=== PATIENT | female | born 1950 | race Caucasian/White ===

== ENCOUNTER 2016-10-17 10:46 | Inpatient (IN) | payer MEDICARE ==
[~2016-10-17] VITALS: Ht 157.5 cm; Wt 78.0 kg
[2016-10-17 11:47] LABS: BASO # 0.1 x10^3/uL (0.0-0.2); BASO % 1 % (0-3); EOS % 1 % (0-3); HEMATOCRIT 38.9 % (36.0-47.0); HEMOGLOBIN 12.9 g/dL (12.0-15.5); LYMPH # 1.4 x10^3/uL (1.0-4.8); LYMPH % 18 % (24-48); MEAN CORPUSCULAR HEMOGLOBIN 32 pg (25-35); MEAN CORPUSCULAR HGB CONC 33 g/dL (31-37); MEAN CORPUSCULAR VOLUME 97 fL (79-100); MONO % 6 % (0-9); NEUT % 75 % (31-73); PLATELET COUNT 283 x10^3/uL (140-400); RED BLOOD COUNT 4.02 x10^6/uL (3.50-5.40); RED CELL DISTRIBUTION WIDTH 14.3 % (11.5-14.5)
[2016-10-17 11:52] LABS: CALCIUM 8.9 mg/dL (8.5-10.1); CREATININE 0.9 mg/dL (0.6-1.0); GFR 62.8; POTASSIUM 4.3 mmol/L (3.5-5.1)
--- NOTE | 2016-10-17 12:11 | RAD ---
Indication: Fall and right knee pain. Time of exam 11:53 AM Severe medial compartmental degenerative change is noted. There is complete loss of the joint space as well as marginal osteophyte formation. The lateral compartment is maintained. There is severe patellofemoral degenerative change noted. Small joint effusion is seen. No fracture is detected. There is no dislocation. Impression: Severe degenerative changes. No acute bony abnormality is detected.
--- NOTE | 2016-10-17 12:29 | RAD ---
Indication: Fall with face pain. Axial imaging through the cervical spine was performed without contrast. Curvature and alignment of the cervical spine is normal. There is multilevel degenerative disc disease with variable disc space narrowing and marginal spurring, greatest C5-6 and C6-7 levels. The prevertebral tissues are normal. The odontoid is intact. No fractures are seen. Impression: Cervical spondylosis. No acute bony abnormality is detected. PQRS Compliance Statement: One or more of the following individualized dose reduction techniques were utilized for this examination: 1. Automated exposure control 2. Adjustment of the mA and/or kV according to patient size 3. Use of iterative reconstruction technique
--- NOTE | 2016-10-17 12:32 | RAD ---
Indication: Fall with left facial swelling and bruising. Axial imaging through the brain and facial bones was performed without contrast. Sagittal and coronal reformations of the facial bones were also performed. CT brain: The ventricles and sulci are within normal limits. No sulcal effacement, midline shift or hemorrhage is detected. The cisterns are patent. Impression: No acute intracranial process is detected. CT maxillofacial: The mandible appears intact. The zygomatic arches are intact. Minimal mucosal thickening of the left maxillary sinus is noted. The maxillary sinus burnette are intact. The nasal bones as well as the orbital burnette appear to be intact. No fractures are seen. Impression: No facial bone fracture is detected. PQRS Compliance Statement: One or more of the following individualized dose reduction techniques were utilized for this examination: 1. Automated exposure control 2. Adjustment of the mA and/or kV according to patient size 3. Use of iterative reconstruction technique
--- NOTE | 2016-10-17 13:33 | EKG ---
[facility] [address] [place] [address] Test Date: 2016-10-17 Test Time: 11:00:36 Pat Name: CHRISTIE MERRITT Department: Room: Gender: F [employer]: : 1950 Requested By: STAFF NON Order Number: [id number] Reading MD: Amrit Donald Measurements Intervals [place] Rate: 80 P: 43 WI: 138 QRS: 46 QRSD: 80 T: 26 QT: 372 QTc: 433 Interpretive Statements SINUS RHYTHM LEFT ATRIAL ABNORMALITY ABNORMAL ECG Electronically Signed On 10-17-2016 15:16:02 [employer]ANK ASSEM[employer]ER by Amrit Donald
--- NOTE | 2016-10-17 15:21 | PHYS DOC ---
Past Medical History Past Medical History: Anxiety, COPD, Depression, GERD, High Cholesterol, Hypertension Additional Past Medical Histor: neuoropathy Past Surgical History: Cholecystectomy, Hip Replacement Additional Past Surgical Histo: lumbar back surgery Alcohol Use: None Drug Use: None Adult General Chief Complaint Chief Complaint: TRAUMA ALERT HPI HPI Patient is a 66 year old female who presents with complaints of right knee pain and left face pain after 3 mechanical falls at home. She got up and her right knee buckled, she hit her face on furniture and had LOC. She got up and tried to ambulate a 2nd time after crawling through her apartment and fell a second time without fall. She had a similar 3rd fall without injury. She denies chest pain, dyspnea, neck pain, headache, vision changes, dizziness, numbness, tingling, weakness, abdominal pain. Review of Systems Review of Systems Constitutional: Denies fever or chills [] Eyes: Denies change in visual acuity, redness, or eye pain [] HENT: Denies nasal congestion or sore throat [] Respiratory: Denies cough or shortness of breath [] Cardiovascular: No additional information not addressed in HPI [] GI: Denies abdominal pain, nausea, vomiting, bloody stools or diarrhea [] : Denies dysuria or hematuria [] Musculoskeletal: Denies back pain [] Integument: Denies rash or skin lesions [] Neurologic: Denies headache, focal weakness or sensory changes [] Endocrine: Denies polyuria or polydipsia [] Allergies Allergies Allergies Coded Allergies Type Severity Reaction Last Updated Verified ibuprofen Allergy Intermediate 10/17/16 Yes Physical Exam Physical Exam Constitutional: Well developed, well nourished, no acute distress, non-toxic appearance. [] HENT: Normocephalic, bilateral external ears normal, oropharynx moist, no oral exudates, nose normal. Left zygoma ecchymosis and swelling without palpable bony abnormality. No hemotympanum, osman sign, raccoon eyes [] Eyes: PERRLA, EOMI. [] Neck: Normal range of motion, no tenderness, supple. [] Cardiovascular:Heart rate regular rhythm, no murmur [] Lungs & Thorax: Bilateral breath sounds clear to auscultation [] Abdomen: Bowel sounds normal, soft, no tenderness. [] Skin: Warm, dry, no erythema, no rash. [] Back: No tenderness, no CVA tenderness. [] Extremities: No obvious deformity or discoloration; Has tenderness about proximal tibia with no visual or palpable abnormality; Able to flex/ex/IR/ER hip , knee full rom, ankle df/pf, toes df/pf; No obvious knee joint laxity with stressing; SILT jade/sa/sp/dp/tib distributions; equal dp and pt pulses bilaterally [] Neurologic: Alert and oriented X 3, normal motor function, normal sensory function, no focal deficits noted. [] Psychologic: Affect normal, judgement normal, mood normal. [] Current Patient Data Vital Signs Vital Signs Date Time Temp Pulse Resp B/P Pulse Ox O2 Delivery O2 Flow Rate FiO2 10/17/16 14:00 82 20 134/63 99 Nasal Cannula 3 10/17/16 10:50 98.4 98.4 Lab Values Laboratory Tests Test 10/17/16 11:10 White Blood Count 8.0x10^3/uL (4.0-11.0) Red Blood Count 4.02x10^6/uL (3.50-5.40) Hemoglobin 12.9g/dL (12.0-15.5) Hematocrit 38.9% (36.0-47.0) Mean Corpuscular Volume 97fL (79-100) Mean Corpuscular Hemoglobin 32pg (25-35) Mean Corpuscular Hemoglobin Concent 33g/dL (31-37) Red Cell Distribution Width 14.3% (11.5-14.5) Platelet Count 283x10^3/uL (140-400) Neutrophils (%) (Auto) 75% (31-73) H Lymphocytes (%) (Auto) 18% (24-48) L Monocytes (%) (Auto) 6% (0-9) Eosinophils (%) (Auto) 1% (0-3) Basophils (%) (Auto) 1% (0-3) Neutrophils # (Auto) 6.0x10^3uL (1.8-7.7) Lymphocytes # (Auto) 1.4x10^3/uL (1.0-4.8) Monocytes # (Auto) 0.4x10^3/uL (0.0-1.1) Eosinophils # (Auto) 0.1x10^3/uL (0.0-0.7) Basophils # (Auto) 0.1x10^3/uL (0.0-0.2) Sodium Level 144mmol/L (136-145) Potassium Level 4.3mmol/L (3.5-5.1) Chloride Level 102mmol/L (98-107) Carbon Dioxide Level 35mmol/L (21-32) H Anion Gap 7 (6-14) Blood Urea Nitrogen 11mg/dL (7-20) Creatinine 0.9mg/dL (0.6-1.0) Estimated GFR (Cockcroft-Gault) 62.8 Glucose Level 88mg/dL (70-99) Calcium Level 8.9mg/dL (8.5-10.1) Laboratory Tests 10/17/16 11:10 Laboratory Tests 10/17/16 11:10 EKG EKG EKG as interpreted by normal sinus rhythm, rate 80, no ST-T changes, normal intervals, no ectopy Radiology/Procedures Radiology/Procedures Right knee x-ray as interpreted by me with severe degenerative changes, no acute osseous abnormality Head and maxillofacial CT without contrast CT brain: Impression: No acute intracranial process is detected. CT maxillofacial: Impression: No facial bone fracture is detected. DICTATED and SIGNED BY: CLAUDE ACUNA MD DATE: 10/17/161226 Cervical spine CT without contrast Impression: Cervical spondylosis. No acute bony abnormality is detected. DICTATED and SIGNED BY: CLAUDE ACUNA MD DATE: 10/17/161224 Course & Med Decision Making Course & Med Decision Making Pertinent Labs and Imaging studies reviewed. (See chart for details) Imaging is nonacute. She is unable to ambulate due to knee pain. Will admit for pain control and PT evaluation. Trauma consult placed to Dr. Ogden, who will follow inpatient. Dragon Disclaimer Dragon Disclaimer This electronic medical record was generated, in whole or in part, using a voice recognition dictation system. Departure Departure Impression: Primary Impression: Contusion of face Additional Impressions: Closed head injury Right knee pain Disposition: ADMITTED INPATIENT Condition: STABLE Referrals: UNKNOWN PCP NAME (PCP) Problem Qualifiers Primary Impression: Contusion of face Encounter type: initial encounter Qualified Code: S00.83XA - Contusion of other part of head, initial encounter Additional Impressions: Closed head injury Encounter type: initial encounter Qualified Code: S09.90XA - Unspecified injury of head, initial encounter Right knee pain Chronicity: acute Qualified Code: M25.561 - Pain in right knee Jaguar TALAVERA MD Oct 17, 2016 15:21
[2016-10-17] MEDS ORDERED: ONDANSETRON PF 4 MG/2 ML VIAL. IV PRN (15:30)
[2016-10-17] MEDS ORDERED: ACETAMINOPHEN 325 MG TABLET. PO PRN (15:30)
[2016-10-17 15:46] LABS: BILIRUBIN,URINE NEGATIVE (NEG); GLUCOSE,URINE NEGATIVE (NEG); NITRITE,URINE NEGATIVE (NEG); PH,URINE 6.5; PROTEIN,URINE NEGATIVE (NEG-TRACE); UROBILINOGEN,URINE 0.2 mg/dL (0.2 mg/dL)
--- NOTE | 2016-10-17 15:55 | PDOC1 ---
History and Physical Date of Admission Date of Admission DATE: 10/17/16 TIME: 15:47 Identification/Chief Complaint Chief Complaint R knee pain , fell Source Source: Chart review, Patient History of Present Illness History of Present Illness 66 y.o female came to er today bec she had a mechanical fall at home, She fell and hit her R knee, left head area and she does have a visible small concussion on left forehead area,. She cant bend her R knee to full flexion, which is not her baseline, She does have hx OA, follows with ortho at [facility] and gets knee injectiosn q 3 mos and her next schedule is on Nov 15. She does notw ant to have sx here sicne she follows at [facility],. I did bring up the option of her going to [facility] instead but she was agreeble to just being admitted here for pain control. She claims her insurance wont cover HH, she is agreeable to PT here. She was road tested at ER level and could barely sustain her weight, She ambulates with a walker, She has a normal BMI. Ct head, spine and neck are all normal. xray of knee, likewise, there are no FNDs. Knee xray does show severe DJD She has broken her left hip before and has ahd 2 back sxs in the past. Past Medical History Musculoskeletal: Other (OA, back pain) Past Surgical History Past Surgical History: Other (hip sx, back sx x 2) Family History Family History: No Significant Social History Smoke: No ALCOHOL: none Drugs: None Current Problem List Problem List Problems Medical Problems: (1) Closed head injury Status: Acute (2) Contusion of face Status: Acute (3) Right knee pain Status: Acute Problems: Current Medications Current Medications Current Medications Ondansetron HCl (Zofran) 4 mg PRN Q8HRS PRN IV NAUSEA/VOMITING; Start 10/17/16 at 15:30; Stop 10/18/16 at 15:29 Acetaminophen (Tylenol) 650 mg PRN Q4HRS PRN PO FEVER; Start 10/17/16 at 15:30 ; Stop 10/18/16 at 15:29 Allergies Allergies: Coded Allergies: ibuprofen (Verified Allergy, Intermediate, 10/17/16) ROS Review of System back pain, chronic, R knee pain, no nausea, CO, emesis, abd pain or any other sxs; al else is neg Physical Exam General: Alert, Oriented X3, Cooperative, No acute distress HEENT: Atraumatic Lungs: Clear to auscultation, Normal air movement Heart: S1S2, RRR, no thrills, no rubs, no gallops Cardiovascular: S1, S2 Breasts: Normal Abdomen: Normal bowel sounds, Soft, No tenderness, No hepatosplenomegaly, No masses Rectal Exam: not examined PELVIC: Nml ext genitalia, Nml ext vulva, Nml ext vagina, Nml ext cervic, Nml ext uterus Extremities: Other (limited flexion R knee, left knee has full rom, no crepitus , erythema or fluid on R knee) Vitals Vitals Vital Signs Date Time Temp Pulse Resp B/P Pulse Ox O2 Delivery O2 Flow Rate FiO2 10/17/16 14:00 82 20 134/63 99 Nasal Cannula 3 10/17/16 10:50 98.4 98.4 Labs Labs Laboratory Tests Test 10/17/16 11:10 White Blood Count 8.0x10^3/uL (4.0-11.0) Red Blood Count 4.02x10^6/uL (3.50-5.40) Hemoglobin 12.9g/dL (12.0-15.5) Hematocrit 38.9% (36.0-47.0) Mean Corpuscular Volume 97fL (79-100) Mean Corpuscular Hemoglobin 32pg (25-35) Mean Corpuscular Hemoglobin Concent 33g/dL (31-37) Red Cell Distribution Width 14.3% (11.5-14.5) Platelet Count 283x10^3/uL (140-400) Neutrophils (%) (Auto) 75% (31-73) Lymphocytes (%) (Auto) 18% (24-48) Monocytes (%) (Auto) 6% (0-9) Eosinophils (%) (Auto) 1% (0-3) Basophils (%) (Auto) 1% (0-3) Neutrophils # (Auto) 6.0x10^3uL (1.8-7.7) Lymphocytes # (Auto) 1.4x10^3/uL (1.0-4.8) Monocytes # (Auto) 0.4x10^3/uL (0.0-1.1) Eosinophils # (Auto) 0.1x10^3/uL (0.0-0.7) Basophils # (Auto) 0.1x10^3/uL (0.0-0.2) Sodium Level 144mmol/L (136-145) Potassium Level 4.3mmol/L (3.5-5.1) Chloride Level 102mmol/L (98-107) Carbon Dioxide Level 35mmol/L (21-32) Anion Gap 7 (6-14) Blood Urea Nitrogen 11mg/dL (7-20) Creatinine 0.9mg/dL (0.6-1.0) Estimated GFR (Cockcroft-Gault) 62.8 Glucose Level 88mg/dL (70-99) Calcium Level 8.9mg/dL (8.5-10.1) Laboratory Tests Test 10/17/16 11:10 White Blood Count 8.0x10^3/uL (4.0-11.0) Red Blood Count 4.02x10^6/uL (3.50-5.40) Hemoglobin 12.9g/dL (12.0-15.5) Hematocrit 38.9% (36.0-47.0) Mean Corpuscular Volume 97fL (79-100) Mean Corpuscular Hemoglobin 32pg (25-35) Mean Corpuscular Hemoglobin Concent 33g/dL (31-37) Red Cell Distribution Width 14.3% (11.5-14.5) Platelet Count 283x10^3/uL (140-400) Neutrophils (%) (Auto) 75% (31-73) Lymphocytes (%) (Auto) 18% (24-48) Monocytes (%) (Auto) 6% (0-9) Eosinophils (%) (Auto) 1% (0-3) Basophils (%) (Auto) 1% (0-3) Neutrophils # (Auto) 6.0x10^3uL (1.8-7.7) Lymphocytes # (Auto) 1.4x10^3/uL (1.0-4.8) Monocytes # (Auto) 0.4x10^3/uL (0.0-1.1) Eosinophils # (Auto) 0.1x10^3/uL (0.0-0.7) Basophils # (Auto) 0.1x10^3/uL (0.0-0.2) Sodium Level 144mmol/L (136-145) Potassium Level 4.3mmol/L (3.5-5.1) Chloride Level 102mmol/L (98-107) Carbon Dioxide Level 35mmol/L (21-32) Anion Gap 7 (6-14) Blood Urea Nitrogen 11mg/dL (7-20) Creatinine 0.9mg/dL (0.6-1.0) Estimated GFR (Cockcroft-Gault) 62.8 Glucose Level 88mg/dL (70-99) Calcium Level 8.9mg/dL (8.5-10.1) VTE Prophylaxis Ordered VTE Prophylaxis Devices: Yes VTE Pharmacological Prophylaxi: Yes Assessment/Plan Assessment/Plan 1. Severe DJD R knee with signif limited rOM tahn baseline after a mechanical fall 2. Left forehead contusion sec to fall 3. Hx back sx x 2 and hip sx PLAN: PT/OT PAin control Can check vit D levels Consult physiatry Voltaren gel to R knee scheduled HOLD off on any ortho consults as she is a know pt of ortho at [facility] and refuses any intervention here Seen at CLAUDETTE APONTE MD Oct 17, 2016 15:55
[2016-10-17] MEDS ORDERED: HYDROCODONE/APAP 10/325 TABLET. PO PRN (16:00)
[2016-10-17] MEDS ORDERED: MORPHINE SULFATE 2 MG/ML DISP.SYRIN. IV PRN (16:00)
[2016-10-17] MEDS ORDERED: HYDROCODONE/APAP 5/325MG TABLET. PO PRN (16:00)
[2016-10-17 16:12] LABS: BACTERIA,URINE 0 /HPF (0-FEW); SQUAMOUS EPITHELIAL CELL,UR OCC /LPF; WBC,URINE OCC /HPF (0-4)
--- NOTE | 2016-10-17 16:20 | ACF ---
Admission Forms Criteria PAIN MANAGEMENT [facility] Clinical Indications for Admission to Inpatient Care (Place 'X' for any and all applicable criteria): Hospital admission is needed for appropriate care of the patient because of ANY ONE of the following are present (1)(2)(3)(4)(5): [ ]I. Severe pain requiring acute inpatient management as indicated by ALL of the following (2)(5)(10): [ ]a) Continuous or frequent (eg, every 2 to 4 hours) parenteral analgesics required [A] [ ]b) Necessity (ie, alternative approaches not effective) for analgesic regimen that can only be performed or initiated in inpatient setting [X]II. Pain causing debilitation to the point of inability to function or be supported at any other level of care [ ]III. Severe side effects from pain medications as indicated by ANY ONE of the following (12)(13)(14)(15): [ ]a) Uncontrollable seizures [ ]b) Cardiac arrhythmias [ ]c) Severe volume depletion [ ]d) Vomiting that is uncontrollable at any other level of care [ ]e) Altered mental status (Rosa coma scale score less than 13) [ ]f) Obstipation with inadequate GI function to maintain nutrition [ ]g) Dehydration that is severe or persistent The original [employer] content created by [employer] has been revised. The portions of the content which have been revised are identified through the use of italic text or in bold, and [employer] [facility] has neither reviewed nor approved the modified material. All other unmodified content is copyright [employer]. Please see references footnoted in the original [employer] edition 2016 Admission Criteria Met?: Yes MARGARITO JIN Oct 17, 2016 16:20
[2016-10-17] MEDS: ONDANSETRON PF 4 MG/2 ML VIAL. IV PRN ×2 (16:51→22:59)
[2016-10-17 17:37] VITALS: BP 110/68
[2016-10-17] MEDS ORDERED: OMEP20TA63 PO (17:48)
[2016-10-17] MEDS ORDERED: ASPI81TA2 PO (17:48)
[2016-10-17] MEDS ORDERED: WHEA1POW8 PO (17:48)
[2016-10-17] MEDS ORDERED: TRAZ50TA15 PO (17:48)
[2016-10-17] MEDS ORDERED: ATOR20TA58 PO (17:48)
[2016-10-17] MEDS ORDERED: SERT25TA PO (17:48)
[2016-10-17] MEDS ORDERED: BACL10TA PO (17:48)
[2016-10-17] MEDS ORDERED: GABA-586 PO (17:48)
[2016-10-17] MEDS ORDERED: ATEN25TA PO (17:48)
[2016-10-17 19:25] VITALS: BP 138/72
[2016-10-17] MEDS: DICLOFENAC SODIUM 1% TOPICAL GEL 100GM TUBE. TP SCH (20:34)
[2016-10-17] MEDS: PANTOPRAZOLE 40 MG TABLET. PO SCH (20:34)
[2016-10-17] MEDS: OXYCODONE/APAP 10/325 TABLET. PO PRN (21:02)
[2016-10-17 23:00] VITALS: BP 146/79
[2016-10-18 03:00] VITALS: BP 141/74
[2016-10-18] MEDS: OXYCODONE/APAP 10/325 TABLET. PO PRN (06:40)
[2016-10-18] MEDS: ONDANSETRON PF 4 MG/2 ML VIAL. IV PRN (06:43)
[2016-10-18 07:00] VITALS: BP 160/83
--- NOTE | 2016-10-18 08:26 | PDOC2 ---
KEVIN DOMINGUEZ Isaias PREVENTION COORDINATOR 10/18/16 0826: CONSULT Date of Consult Date of Consult DATE: 10/18/16 TIME: 08:18 Reason for Consult Reason for Consult: Trauma Referring Physician Referring Physician: ER Identification/Chief Complaint Chief Complaint fall Source Source: Chart review, Patient History of Present Illness Reason for Visit: Right knee gave out, fell hit head struck furniture, + LOC, attempted to stand, fell two more times. Denies abdominal pain, no blurred vision. + nausea. Ongoing knee pain Past Medical History Past Medical History obesity Cardiovascular: HTN Pulmonary: COPD, Other (sleep apnea) CENTRAL NERVOUS SYSTEM: Periperal neuropathy GI: GERD Psych: Anxiety, Depression Musculoskeletal: Osteoarthritis, Other (OA, back pain) Past Surgical History Past Surgical History: Cholecystectomy, Other (hip sx, back sx x 2) Family History Family History: No Significant Social History Quit (12 years ago) ALCOHOL: none Drugs: None Current Problem List Problem List Problems Medical Problems: (1) Closed head injury Status: Acute (2) Contusion of face Status: Acute (3) Right knee pain Status: Acute Current Medications Current Medications Current Medications Ondansetron HCl (Zofran) 4 mg PRN Q8HRS PRN IV NAUSEA/VOMITING; Start 10/17/16 at 15:30; Stop 10/17/16 at 15:47; Status DC Acetaminophen (Tylenol) 650 mg PRN Q4HRS PRN PO FEVER Last administered on 10/17 22:58; Start 10/17/16 at 15:30; Stop 10/18/16 at 15:29 Ondansetron HCl (Zofran) 4 mg PRN Q6HRS PRN IV NAUSEA/VOMITING Last administered on 10/18/16 06:43; Start 10/17/16 at 15:46 Morphine Sulfate 2 mg PRN Q2HR PRN IV PAIN Last administered on 10/17/16 16:52 ; Start 10/17/16 at 16:00 Acetaminophen/ Hydrocodone Bitart (Lortab 5/325) 1 tab PRN Q4HRS PRN PO PAIN; Start 10/17/16 at 16:00; Stop 10/17/16 at 18:35; Status DC Acetaminophen/ Hydrocodone Bitart (Lortab 10/325) 1 tab PRN Q6HRS PRN PO PAIN Last administered on 10/17/16 16:51; Start 10/17/16 at 16:00; Stop 10/17/16 at 18:35; Status DC Diclofenac Sodium (Voltaren) 1 josse BID TP Last administered on 10/17/16 20:34 ; Start 10/17/16 at 21:00 Oxycodone/ Acetaminophen (Percocet 10/325) 1 tab PRN Q6HRS PRN PO PAIN Last administered on 10/18/16 06:40; Start 10/17/16 at 18:30 Pantoprazole Sodium (Protonix) 40 mg DAILYAC PO Last administered on 10/17/16 20:34; Start 10/17/16 at 19:00 Active Scripts Active Reported Benefiber (Wheat Dextrin) 1 Each Powd.pack 1 Each PO QHS Atorvastatin Calcium 20 Mg Tablet 20 Mg PO HS Trazodone Hcl 50 Mg Tablet 50 Mg PO HS Aspirin 81 Mg Tab.chew 1 Tab PO DAILY Prilosec Otc (Omeprazole Magnesium) 20 Mg Tablet.dr 1 Tab PO DAILY Atenolol 25 Mg Tablet 1 Tab PO DAILY Zoloft (Sertraline Hcl) 25 Mg Tablet 1 Tab PO DAILY Baclofen 10 Mg Tablet 10 Mg PO QID Gabapentin 300 Mg Capsule 300 Mg PO QID Allergies Allergies: Coded Allergies: ibuprofen (Verified Adverse Reaction, Intermediate, Intolerance, 10/17/16) ROS General: No: Chills, Other (fevers) PSYCHOLOGICAL ROS: No: Anxiety, Depression Eyes: No Blurry vision, No Double vision HEENT: No: Heacaches, Sore Throat Hematological and Lymphatic: No: Bleeding Problems, Blood Clots Respiratory: YES: Cough, Shortness of breath Cardiovascular: No Chest Pain, No Palpitations Gastrointestinal: Yes Constipation, Yes Nausea, No Vomiting Genitourinary: No Dysuria, No Retention Musculoskeletal: Yes Joint Pain, Yes Muscle Pain Neurological: Yes Impaired Coord/balance, Yes Numbness/Tingling, No Confusion Skin: No Pruritus, No Rash Physical Exam General: Alert, Oriented X3, Cooperative, No acute distress HEENT: Other (bruising to left eye) Lungs: Other (clear, 02 present) Heart: Regular rate, Normal S1, Normal S2 Abdomen: Normal bowel sounds, Soft, No tenderness Extremities: No clubbing, No cyanosis Skin: No rashes, No breakdown Neuro: Normal speech, Sensation intact MUSCULOSKELETAL: No deformity, No swelling Vitals VITALS Vital Signs Date Time Temp Pulse Resp B/P Pulse Ox O2 Delivery O2 Flow Rate FiO2 10/18/16 07:00 97.8 101 18 160/83 98 Nasal Cannula 3.0 97.8 Labs Labs Laboratory Tests Test 10/17/16 11:10 10/17/16 15:35 White Blood Count 8.0x10^3/uL (4.0-11.0) Red Blood Count 4.02x10^6/uL (3.50-5.40) Hemoglobin 12.9g/dL (12.0-15.5) Hematocrit 38.9% (36.0-47.0) Mean Corpuscular Volume 97fL (79-100) Mean Corpuscular Hemoglobin 32pg (25-35) Mean Corpuscular Hemoglobin Concent 33g/dL (31-37) Red Cell Distribution Width 14.3% (11.5-14.5) Platelet Count 283x10^3/uL (140-400) Neutrophils (%) (Auto) 75% (31-73) Lymphocytes (%) (Auto) 18% (24-48) Monocytes (%) (Auto) 6% (0-9) Eosinophils (%) (Auto) 1% (0-3) Basophils (%) (Auto) 1% (0-3) Neutrophils # (Auto) 6.0x10^3uL (1.8-7.7) Lymphocytes # (Auto) 1.4x10^3/uL (1.0-4.8) Monocytes # (Auto) 0.4x10^3/uL (0.0-1.1) Eosinophils # (Auto) 0.1x10^3/uL (0.0-0.7) Basophils # (Auto) 0.1x10^3/uL (0.0-0.2) Sodium Level 144mmol/L (136-145) Potassium Level 4.3mmol/L (3.5-5.1) Chloride Level 102mmol/L (98-107) Carbon Dioxide Level 35mmol/L (21-32) Anion Gap 7 (6-14) Blood Urea Nitrogen 11mg/dL (7-20) Creatinine 0.9mg/dL (0.6-1.0) Estimated GFR (Cockcroft-Gault) 62.8 Glucose Level 88mg/dL (70-99) Calcium Level 8.9mg/dL (8.5-10.1) Urine Color Yellow Urine Clarity Clear Urine pH 6.5 Urine Specific [place] 1.010 Urine Protein Negativemg/dL (NEG-TRACE) Urine Glucose (UA) Negativemg/dL (NEG) Urine Ketones (Stick) 15mg/dL (NEG) Urine Blood Trace (NEG) Urine Nitrite Negative (NEG) Urine Bilirubin Negative (NEG) Urine Urobilinogen Dipstick 0.2mg/dL (0.2 mg/dL) Urine Leukocyte Esterase Negative (NEG) Urine RBC 1-2/HPF (0-2) Urine WBC Occ/HPF (0-4) Urine Squamous Epithelial Cells Occ/LPF Urine Bacteria 0/HPF (0-FEW) Urine Hyaline Casts Occasional/HPF Urine Mucus Slight/LPF Laboratory Tests Test 10/17/16 11:10 10/17/16 15:35 White Blood Count 8.0x10^3/uL (4.0-11.0) Red Blood Count 4.02x10^6/uL (3.50-5.40) Hemoglobin 12.9g/dL (12.0-15.5) Hematocrit 38.9% (36.0-47.0) Mean Corpuscular Volume 97fL (79-100) Mean Corpuscular Hemoglobin 32pg (25-35) Mean Corpuscular Hemoglobin Concent 33g/dL (31-37) Red Cell Distribution Width 14.3% (11.5-14.5) Platelet Count 283x10^3/uL (140-400) Neutrophils (%) (Auto) 75% (31-73) Lymphocytes (%) (Auto) 18% (24-48) Monocytes (%) (Auto) 6% (0-9) Eosinophils (%) (Auto) 1% (0-3) Basophils (%) (Auto) 1% (0-3) Neutrophils # (Auto) 6.0x10^3uL (1.8-7.7) Lymphocytes # (Auto) 1.4x10^3/uL (1.0-4.8) Monocytes # (Auto) 0.4x10^3/uL (0.0-1.1) Eosinophils # (Auto) 0.1x10^3/uL (0.0-0.7) Basophils # (Auto) 0.1x10^3/uL (0.0-0.2) Sodium Level 144mmol/L (136-145) Potassium Level 4.3mmol/L (3.5-5.1) Chloride Level 102mmol/L (98-107) Carbon Dioxide Level 35mmol/L (21-32) Anion Gap 7 (6-14) Blood Urea Nitrogen 11mg/dL (7-20) Creatinine 0.9mg/dL (0.6-1.0) Estimated GFR (Cockcroft-Gault) 62.8 Glucose Level 88mg/dL (70-99) Calcium Level 8.9mg/dL (8.5-10.1) Urine Color Yellow Urine Clarity Clear Urine pH 6.5 Urine Specific [place] 1.010 Urine Protein Negativemg/dL (NEG-TRACE) Urine Glucose (UA) Negativemg/dL (NEG) Urine Ketones (Stick) 15mg/dL (NEG) Urine Blood Trace (NEG) Urine Nitrite Negative (NEG) Urine Bilirubin Negative (NEG) Urine Urobilinogen Dipstick 0.2mg/dL (0.2 mg/dL) Urine Leukocyte Esterase Negative (NEG) Urine RBC 1-2/HPF (0-2) Urine WBC Occ/HPF (0-4) Urine Squamous Epithelial Cells Occ/LPF Urine Bacteria 0/HPF (0-FEW) Urine Hyaline Casts Occasional/HPF Urine Mucus Slight/LPF Assessment/Plan Assessment/Plan trauma, mechanical fall right knee pain, loss of mobility, DJD multiple chronic medical problems medical management no general surgical needs, will sign off, please call with questions KATH FRAGOSO MD 10/18/16 1405: CONSULT Allergies Allergies: Coded Allergies: ibuprofen (Verified Adverse Reaction, Intermediate, Intolerance, 10/17/16) Assessment/Plan Assessment/Plan pt was seen earlier today she would not acknowledge my presence, make eye contact or speak she stared at her RLQ while seeming to wipe something off her hospital gown no gen surgery needs, recs will sign off available if needed Thanks for consult KEVIN DOMINGUEZ APRN Oct 18, 2016 08:26 KATH FRAGOSO MD Oct 18, 2016 14:05
[2016-10-18] MEDS: PANTOPRAZOLE 40 MG TABLET. PO SCH (08:51)
[2016-10-18] MEDS: DICLOFENAC SODIUM 1% TOPICAL GEL 100GM TUBE. TP SCH (08:51)
[2016-10-18] MEDS ORDERED: INFLUENZA VAX SCREEN BY RX. MC PRN (09:00)
[2016-10-18] MEDS ORDERED: FLU VACC QUAD 2016-17 (36MOS+)/PF 0.5 ML SYRINGE. VAX IM ONE (10:00)
--- NOTE | 2016-10-18 10:30 | PDOC ---
PROGRESS NOTES Subjective Subjective No new complaints. Objective Objective Vital Signs Date Time Temp Pulse Resp B/P Pulse Ox O2 Delivery O2 Flow Rate FiO2 10/18/16 08:50 Nasal Cannula 3.0 10/18/16 07:00 97.8 101 18 160/83 98 97.8 Intake and Output 10/18/16 07:00 Intake Total 400 ml Output Total 400 ml Balance 0 ml Intake Oral 400 ml Output Urine Total 400 ml Physical Exam Physical Exam She is awake but does not respond and almost like a frozen figure. Assessment Assessment Problems Medical Problems: (1) Closed head injury Status: Acute (2) Contusion of face Status: Acute (3) Head injury due to trauma Status: Acute (4) Right knee pain Status: Acute Plan Plan of Care She might need psychological help. Comment Review of Relevant I have reviewed the following items corey (where applicable) has been applied. Labs Laboratory Tests Test 10/17/16 11:10 10/17/16 15:35 White Blood Count 8.0x10^3/uL (4.0-11.0) Red Blood Count 4.02x10^6/uL (3.50-5.40) Hemoglobin 12.9g/dL (12.0-15.5) Hematocrit 38.9% (36.0-47.0) Mean Corpuscular Volume 97fL (79-100) Mean Corpuscular Hemoglobin 32pg (25-35) Mean Corpuscular Hemoglobin Concent 33g/dL (31-37) Red Cell Distribution Width 14.3% (11.5-14.5) Platelet Count 283x10^3/uL (140-400) Neutrophils (%) (Auto) 75% (31-73) Lymphocytes (%) (Auto) 18% (24-48) Monocytes (%) (Auto) 6% (0-9) Eosinophils (%) (Auto) 1% (0-3) Basophils (%) (Auto) 1% (0-3) Neutrophils # (Auto) 6.0x10^3uL (1.8-7.7) Lymphocytes # (Auto) 1.4x10^3/uL (1.0-4.8) Monocytes # (Auto) 0.4x10^3/uL (0.0-1.1) Eosinophils # (Auto) 0.1x10^3/uL (0.0-0.7) Basophils # (Auto) 0.1x10^3/uL (0.0-0.2) Sodium Level 144mmol/L (136-145) Potassium Level 4.3mmol/L (3.5-5.1) Chloride Level 102mmol/L (98-107) Carbon Dioxide Level 35mmol/L (21-32) Anion Gap 7 (6-14) Blood Urea Nitrogen 11mg/dL (7-20) Creatinine 0.9mg/dL (0.6-1.0) Estimated GFR (Cockcroft-Gault) 62.8 Glucose Level 88mg/dL (70-99) Calcium Level 8.9mg/dL (8.5-10.1) Urine Color Yellow Urine Clarity Clear Urine pH 6.5 Urine Specific [place] 1.010 Urine Protein Negativemg/dL (NEG-TRACE) Urine Glucose (UA) Negativemg/dL (NEG) Urine Ketones (Stick) 15mg/dL (NEG) Urine Blood Trace (NEG) Urine Nitrite Negative (NEG) Urine Bilirubin Negative (NEG) Urine Urobilinogen Dipstick 0.2mg/dL (0.2 mg/dL) Urine Leukocyte Esterase Negative (NEG) Urine RBC 1-2/HPF (0-2) Urine WBC Occ/HPF (0-4) Urine Squamous Epithelial Cells Occ/LPF Urine Bacteria 0/HPF (0-FEW) Urine Hyaline Casts Occasional/HPF Urine Mucus Slight/LPF Laboratory Tests Test 10/17/16 11:10 10/17/16 15:35 White Blood Count 8.0x10^3/uL (4.0-11.0) Red Blood Count 4.02x10^6/uL (3.50-5.40) Hemoglobin 12.9g/dL (12.0-15.5) Hematocrit 38.9% (36.0-47.0) Mean Corpuscular Volume 97fL (79-100) Mean Corpuscular Hemoglobin 32pg (25-35) Mean Corpuscular Hemoglobin Concent 33g/dL (31-37) Red Cell Distribution Width 14.3% (11.5-14.5) Platelet Count 283x10^3/uL (140-400) Neutrophils (%) (Auto) 75% (31-73) Lymphocytes (%) (Auto) 18% (24-48) Monocytes (%) (Auto) 6% (0-9) Eosinophils (%) (Auto) 1% (0-3) Basophils (%) (Auto) 1% (0-3) Neutrophils # (Auto) 6.0x10^3uL (1.8-7.7) Lymphocytes # (Auto) 1.4x10^3/uL (1.0-4.8) Monocytes # (Auto) 0.4x10^3/uL (0.0-1.1) Eosinophils # (Auto) 0.1x10^3/uL (0.0-0.7) Basophils # (Auto) 0.1x10^3/uL (0.0-0.2) Sodium Level 144mmol/L (136-145) Potassium Level 4.3mmol/L (3.5-5.1) Chloride Level 102mmol/L (98-107) Carbon Dioxide Level 35mmol/L (21-32) Anion Gap 7 (6-14) Blood Urea Nitrogen 11mg/dL (7-20) Creatinine 0.9mg/dL (0.6-1.0) Estimated GFR (Cockcroft-Gault) 62.8 Glucose Level 88mg/dL (70-99) Calcium Level 8.9mg/dL (8.5-10.1) Urine Color Yellow Urine Clarity Clear Urine pH 6.5 Urine Specific [place] 1.010 Urine Protein Negativemg/dL (NEG-TRACE) Urine Glucose (UA) Negativemg/dL (NEG) Urine Ketones (Stick) 15mg/dL (NEG) Urine Blood Trace (NEG) Urine Nitrite Negative (NEG) Urine Bilirubin Negative (NEG) Urine Urobilinogen Dipstick 0.2mg/dL (0.2 mg/dL) Urine Leukocyte Esterase Negative (NEG) Urine RBC 1-2/HPF (0-2) Urine WBC Occ/HPF (0-4) Urine Squamous Epithelial Cells Occ/LPF Urine Bacteria 0/HPF (0-FEW) Urine Hyaline Casts Occasional/HPF Urine Mucus Slight/LPF Medications Current Medications Ondansetron HCl (Zofran) 4 mg PRN Q8HRS PRN IV NAUSEA/VOMITING; Start 10/17/16 at 15:30; Stop 10/17/16 at 15:47; Status DC Acetaminophen (Tylenol) 650 mg PRN Q4HRS PRN PO FEVER Last administered on 10/17 22:58; Start 10/17/16 at 15:30; Stop 10/18/16 at 15:29 Ondansetron HCl (Zofran) 4 mg PRN Q6HRS PRN IV NAUSEA/VOMITING Last administered on 10/18/16 06:43; Start 10/17/16 at 15:46 Morphine Sulfate 2 mg PRN Q2HR PRN IV PAIN Last administered on 10/17/16 16:52 ; Start 10/17/16 at 16:00 Acetaminophen/ Hydrocodone Bitart (Lortab 5/325) 1 tab PRN Q4HRS PRN PO PAIN; Start 10/17/16 at 16:00; Stop 10/17/16 at 18:35; Status DC Acetaminophen/ Hydrocodone Bitart (Lortab 10/325) 1 tab PRN Q6HRS PRN PO PAIN Last administered on 10/17/16 16:51; Start 10/17/16 at 16:00; Stop 10/17/16 at 18:35; Status DC Diclofenac Sodium (Voltaren) 1 josse BID TP Last administered on 10/18/16 08:51 ; Start 10/17/16 at 21:00 Oxycodone/ Acetaminophen (Percocet 10/325) 1 tab PRN Q6HRS PRN PO PAIN Last administered on 10/18/16 06:40; Start 10/17/16 at 18:30 Pantoprazole Sodium (Protonix) 40 mg DAILYAC PO Last administered on 10/18/16 08:51; Start 10/17/16 at 19:00 Info (Do NOT chart on this placeholder) 1 each PRN 1X PRN MC SEE COMMENTS; Start 10/18/16 at 09:00; Status UNV Influenza Virus Vaccine Quadrival (Fluarix Quad [id number] Syringe) 0.5 ml ONCE ONCE VAX IM ; Start 10/18/16 at 10:00; Stop 10/18/16 at 10:01; Status DC Active Scripts Active Reported Benefiber (Wheat Dextrin) 1 Each Powd.pack 1 Each PO QHS Atorvastatin Calcium 20 Mg Tablet 20 Mg PO HS Trazodone Hcl 50 Mg Tablet 50 Mg PO HS Aspirin 81 Mg Tab.chew 1 Tab PO DAILY Prilosec Otc (Omeprazole Magnesium) 20 Mg Tablet.dr 1 Tab PO DAILY Atenolol 25 Mg Tablet 1 Tab PO DAILY Zoloft (Sertraline Hcl) 25 Mg Tablet 1 Tab PO DAILY Baclofen 10 Mg Tablet 10 Mg PO QID Gabapentin 300 Mg Capsule 300 Mg PO QID Vitals/I & O Vital Sign - Last 24 Hours 10/17/16 10/17/16 10/17/16 10/17/16 10:50 11:00 11:15 11:30 Temp 98.4 98.4 Pulse 81 80 80 83 Resp 16 20 24 16 B/P 159/73 159/73 166/72 Pulse Ox 95 97 95 O2 Delivery Nasal Cannula Nasal Cannula Nasal Cannula Nasal Cannula O2 Flow Rate 3 3 3 3 10/17/16 10/17/16 10/17/16 10/17/16 11:30 11:45 12:05 12:15 Pulse 80 90 88 88 Resp 16 20 20 20 B/P 161/72 154/72 157/72 134/62 Pulse Ox 97 97 95 94 O2 Delivery Nasal Cannula Nasal Cannula Nasal Cannula Nasal Cannula O2 Flow Rate 3 3 3 3 10/17/16 10/17/16 10/17/16 10/17/16 12:30 13:30 14:00 14:30 Pulse 80 74 82 76 Resp 19 20 20 16 B/P 135/63 148/59 134/63 154/71 Pulse Ox 95 100 99 98 O2 Delivery Nasal Cannula Nasal Cannula Nasal Cannula Nasal Cannula O2 Flow Rate 3 3 3 3 10/17/16 10/17/16 10/17/16 10/17/16 15:00 15:30 16:51 16:52 Pulse 80 76 Resp 16 16 20 20 B/P 153/68 147/66 Pulse Ox 100 100 100 O2 Delivery Nasal Cannula Nasal Cannula Nasal Cannula Nasal Cannula O2 Flow Rate 3 3 2.0 3.0 10/17/16 10/17/16 10/17/16 10/17/16 17:22 17:37 19:25 20:00 Temp 97.9 98.7 97.9 98.7 Pulse 86 96 Resp 20 16 18 B/P 110/68 138/72 Pulse Ox 94 99 O2 Delivery Nasal Cannula Nasal Cannula Nasal Cannula Nasal Cannula O2 Flow Rate 3.0 2.0 3.0 3.0 1/25/17 10/17/16 10/18/16 10/18/16 21:02 23:00 03:00 06:40 Temp 98.4 98.2 98.4 98.2 Pulse 100 101 Resp 18 18 B/P 146/79 141/74 Pulse Ox 98 98 O2 Delivery Nasal Cannula Room Air Room Air Nasal Cannula O2 Flow Rate 3.0 10/18/16 10/18/16 07:00 08:50 Temp 97.8 97.8 Pulse 101 Resp 18 B/P 160/83 Pulse Ox 98 O2 Delivery Nasal Cannula Nasal Cannula O2 Flow Rate 3.0 3.0 Intake and Output 10/17/16 10/17/16 10/18/16 15:00 23:00 07:00 Intake Total 0 ml 400 ml Output Total 400 ml Balance 0 ml 0 ml JORGE MAHAJAN MD Oct 18, 2016 10:30
[2016-10-18 10:50] VITALS: BP 148/80
[2016-10-18] MEDS ORDERED: SERTRALINE 25 MG TABLET. PO SCH (11:00)
[2016-10-18] MEDS ORDERED: ATENOLOL 25 MG TABLET PO SCH (11:00)
--- NOTE | 2016-10-18 11:17 | PDOC ---
PROGRESS NOTES Chief Complaint Chief Complaint 1. Severe DJD R knee 2. Left forehead contusion sec to fall 3. Hx back sx x 2 and hip sx 4. s/p fall at home Plan declined to see orthopedics and surgery team here wants to go to [facility], asked SW to initiate the transfer process, doubt they take her declined to work with PT/OT Pain control labs stable History of Present Illness History of Present Illness pain better wants to go to [facility] Vitals Vitals Vital Signs Date Time Temp Pulse Resp B/P Pulse Ox O2 Delivery O2 Flow Rate FiO2 10/18/16 10:50 97.9 104 16 148/80 98 Nasal Cannula 3.0 97.9 Physical Exam General: Alert, Oriented X3, Cooperative, No acute distress Heart: Regular rate, Normal S1, Normal S2 Abdomen: Normal bowel sounds, Soft, No tenderness Extremities: No clubbing, No cyanosis Skin: No rashes, No breakdown Labs LABS Laboratory Tests Test 10/17/16 15:35 Urine Color Yellow Urine Clarity Clear Urine pH 6.5 Urine Specific [place] 1.010 Urine Protein Negativemg/dL (NEG-TRACE) Urine Glucose (UA) Negativemg/dL (NEG) Urine Ketones (Stick) 15mg/dL (NEG) Urine Blood Trace (NEG) Urine Nitrite Negative (NEG) Urine Bilirubin Negative (NEG) Urine Urobilinogen Dipstick 0.2mg/dL (0.2 mg/dL) Urine Leukocyte Esterase Negative (NEG) Urine RBC 1-2/HPF (0-2) Urine WBC Occ/HPF (0-4) Urine Squamous Epithelial Cells Occ/LPF Urine Bacteria 0/HPF (0-FEW) Urine Hyaline Casts Occasional/HPF Urine Mucus Slight/LPF Assessment and Plan Assessmemt and Plan Problems Medical Problems: (1) Closed head injury Status: Acute (2) Contusion of face Status: Acute (3) Head injury due to trauma Status: Acute (4) Right knee pain Status: Acute Problems: Comment Review of Relevant I have reviewed the following items corey (where applicable) has been applied. Labs Laboratory Tests Test 10/17/16 11:10 10/17/16 15:35 White Blood Count 8.0x10^3/uL (4.0-11.0) Red Blood Count 4.02x10^6/uL (3.50-5.40) Hemoglobin 12.9g/dL (12.0-15.5) Hematocrit 38.9% (36.0-47.0) Mean Corpuscular Volume 97fL (79-100) Mean Corpuscular Hemoglobin 32pg (25-35) Mean Corpuscular Hemoglobin Concent 33g/dL (31-37) Red Cell Distribution Width 14.3% (11.5-14.5) Platelet Count 283x10^3/uL (140-400) Neutrophils (%) (Auto) 75% (31-73) Lymphocytes (%) (Auto) 18% (24-48) Monocytes (%) (Auto) 6% (0-9) Eosinophils (%) (Auto) 1% (0-3) Basophils (%) (Auto) 1% (0-3) Neutrophils # (Auto) 6.0x10^3uL (1.8-7.7) Lymphocytes # (Auto) 1.4x10^3/uL (1.0-4.8) Monocytes # (Auto) 0.4x10^3/uL (0.0-1.1) Eosinophils # (Auto) 0.1x10^3/uL (0.0-0.7) Basophils # (Auto) 0.1x10^3/uL (0.0-0.2) Sodium Level 144mmol/L (136-145) Potassium Level 4.3mmol/L (3.5-5.1) Chloride Level 102mmol/L (98-107) Carbon Dioxide Level 35mmol/L (21-32) Anion Gap 7 (6-14) Blood Urea Nitrogen 11mg/dL (7-20) Creatinine 0.9mg/dL (0.6-1.0) Estimated GFR (Cockcroft-Gault) 62.8 Glucose Level 88mg/dL (70-99) Calcium Level 8.9mg/dL (8.5-10.1) Urine Color Yellow Urine Clarity Clear Urine pH 6.5 Urine Specific [place] 1.010 Urine Protein Negativemg/dL (NEG-TRACE) Urine Glucose (UA) Negativemg/dL (NEG) Urine Ketones (Stick) 15mg/dL (NEG) Urine Blood Trace (NEG) Urine Nitrite Negative (NEG) Urine Bilirubin Negative (NEG) Urine Urobilinogen Dipstick 0.2mg/dL (0.2 mg/dL) Urine Leukocyte Esterase Negative (NEG) Urine RBC 1-2/HPF (0-2) Urine WBC Occ/HPF (0-4) Urine Squamous Epithelial Cells Occ/LPF Urine Bacteria 0/HPF (0-FEW) Urine Hyaline Casts Occasional/HPF Urine Mucus Slight/LPF Laboratory Tests Test 10/17/16 15:35 Urine Color Yellow Urine Clarity Clear Urine pH 6.5 Urine Specific [place] 1.010 Urine Protein Negativemg/dL (NEG-TRACE) Urine Glucose (UA) Negativemg/dL (NEG) Urine Ketones (Stick) 15mg/dL (NEG) Urine Blood Trace (NEG) Urine Nitrite Negative (NEG) Urine Bilirubin Negative (NEG) Urine Urobilinogen Dipstick 0.2mg/dL (0.2 mg/dL) Urine Leukocyte Esterase Negative (NEG) Urine RBC 1-2/HPF (0-2) Urine WBC Occ/HPF (0-4) Urine Squamous Epithelial Cells Occ/LPF Urine Bacteria 0/HPF (0-FEW) Urine Hyaline Casts Occasional/HPF Urine Mucus Slight/LPF Medications Current Medications Ondansetron HCl (Zofran) 4 mg PRN Q8HRS PRN IV NAUSEA/VOMITING; Start 10/17/16 at 15:30; Stop 10/17/16 at 15:47; Status DC Acetaminophen (Tylenol) 650 mg PRN Q4HRS PRN PO FEVER Last administered on 10/17 22:58; Start 10/17/16 at 15:30; Stop 10/18/16 at 15:29 Ondansetron HCl (Zofran) 4 mg PRN Q6HRS PRN IV NAUSEA/VOMITING Last administered on 10/18/16 06:43; Start 10/17/16 at 15:46 Morphine Sulfate 2 mg PRN Q2HR PRN IV PAIN Last administered on 10/17/16 16:52 ; Start 10/17/16 at 16:00 Acetaminophen/ Hydrocodone Bitart (Lortab 5/325) 1 tab PRN Q4HRS PRN PO PAIN; Start 10/17/16 at 16:00; Stop 10/17/16 at 18:35; Status DC Acetaminophen/ Hydrocodone Bitart (Lortab 10/325) 1 tab PRN Q6HRS PRN PO PAIN Last administered on 10/17/16 16:51; Start 10/17/16 at 16:00; Stop 10/17/16 at 18:35; Status DC Diclofenac Sodium (Voltaren) 1 josse BID TP Last administered on 10/18/16 08:51 ; Start 10/17/16 at 21:00 Oxycodone/ Acetaminophen (Percocet 10/325) 1 tab PRN Q6HRS PRN PO PAIN Last administered on 10/18/16 06:40; Start 10/17/16 at 18:30 Pantoprazole Sodium (Protonix) 40 mg DAILYAC PO Last administered on 10/18/16 08:51; Start 10/17/16 at 19:00 Info (Do NOT chart on this placeholder) 1 each PRN 1X PRN MC SEE COMMENTS; Start 10/18/16 at 09:00; Status UNV Influenza Virus Vaccine Quadrival (Fluarix Quad [id number] Syringe) 0.5 ml ONCE ONCE VAX IM ; Start 10/18/16 at 10:00; Stop 10/18/16 at 10:01; Status DC Atenolol (Tenormin) 25 mg DAILY PO ; Start 10/18/16 at 11:00 Baclofen (Lioresal) 10 mg QID PO ; Start 10/18/16 at 11:00 Gabapentin (Neurontin) 300 mg QID PO ; Start 10/18/16 at 13:00 Sertraline HCl (Zoloft) 25 mg DAILY PO ; Start 10/18/16 at 11:00 Trazodone HCl (Desyrel) 50 mg HS PO ; Start 10/18/16 at 21:00 Pantoprazole Sodium (Protonix) 40 mg DAILYAC PO ; Start 10/18/16 at 11:30; Status Cancel Active Scripts Active Reported Benefiber (Wheat Dextrin) 1 Each Powd.pack 1 Each PO QHS Atorvastatin Calcium 20 Mg Tablet 20 Mg PO HS Trazodone Hcl 50 Mg Tablet 50 Mg PO HS Aspirin 81 Mg Tab.chew 1 Tab PO DAILY Prilosec Otc (Omeprazole Magnesium) 20 Mg Tablet.dr 1 Tab PO DAILY Atenolol 25 Mg Tablet 1 Tab PO DAILY Zoloft (Sertraline Hcl) 25 Mg Tablet 1 Tab PO DAILY Baclofen 10 Mg Tablet 10 Mg PO QID Gabapentin 300 Mg Capsule 300 Mg PO QID Vitals/I & O Vital Sign - Last 24 Hours 10/17/16 10/17/16 10/17/16 10/17/16 11:30 11:30 11:45 12:05 Pulse 83 80 90 88 Resp 16 16 20 20 B/P 161/72 154/72 157/72 Pulse Ox 97 97 95 O2 Delivery Nasal Cannula Nasal Cannula Nasal Cannula Nasal Cannula O2 Flow Rate 3 3 3 3 10/17/16 10/17/16 10/17/16 10/17/16 12:15 12:30 13:30 14:00 Pulse 88 80 74 82 Resp 20 19 20 20 B/P 134/62 135/63 148/59 134/63 Pulse Ox 94 95 100 99 O2 Delivery Nasal Cannula Nasal Cannula Nasal Cannula Nasal Cannula O2 Flow Rate 3 3 3 3 10/17/16 10/17/16 10/17/16 10/17/16 14:30 15:00 15:30 16:51 Pulse 76 80 76 Resp 16 16 16 20 B/P 154/71 153/68 147/66 Pulse Ox 98 100 100 O2 Delivery Nasal Cannula Nasal Cannula Nasal Cannula Nasal Cannula O2 Flow Rate 3 3 3 2.0 10/17/16 10/17/16 10/17/16 10/17/16 16:52 17:22 17:37 19:25 Temp 97.9 98.7 97.9 98.7 Pulse 86 96 Resp 20 20 16 18 B/P 110/68 138/72 Pulse Ox 100 94 99 O2 Delivery Nasal Cannula Nasal Cannula Nasal Cannula Nasal Cannula O2 Flow Rate 3.0 3.0 2.0 3.0 10/17/16 10/17/16 10/17/16 10/18/16 20:00 21:02 23:00 03:00 Temp 98.4 98.2 98.4 98.2 Pulse 100 101 Resp 18 18 B/P 146/79 141/74 Pulse Ox 98 98 O2 Delivery Nasal Cannula Nasal Cannula Room Air Room Air O2 Flow Rate 3.0 3.0 10/18/16 10/18/16 10/18/16 10/18/16 06:40 07:00 07:42 08:50 Temp 97.8 97.8 Pulse 101 Resp 18 B/P 160/83 Pulse Ox 98 O2 Delivery Nasal Cannula Nasal Cannula Nasal Cannula Nasal Cannula O2 Flow Rate 3.0 3.0 3.0 10/18/16 10:50 Temp 97.9 97.9 Pulse 104 Resp 16 B/P 148/80 Pulse Ox 98 O2 Delivery Nasal Cannula O2 Flow Rate 3.0 Intake and Output 10/17/16 10/17/16 10/18/16 15:00 23:00 07:00 Intake Total 0 ml 400 ml Output Total 400 ml Balance 0 ml 0 ml GEORGE WELLINGTON MD Oct 18, 2016 11:16
[2016-10-18] MEDS ORDERED: PANTOPRAZOLE 40 MG TABLET. PO SCH (11:30)
[2016-10-18 11:41] VITALS: BP 148/80
[2016-10-18] MEDS: BACLOFEN 10 MG TABLET PO SCH ×2 (11:41→13:00)
[2016-10-18] MEDS ORDERED: GABAPENTIN 300 MG CAPSULE. PO SCH (13:00)
--- NOTE | 2016-10-18 15:28 | CONS ---
DATE OF CONSULTATION: 10/17/2016 ATTENDING PHYSICIAN: Buffy Singleton MD The patient was seen at the request of Dr. Singleton for rehab evaluation. HISTORY OF PRESENT ILLNESS: This is a 66-year-old right-handed female on disability long time from multiple lumbar spine surgeries, 2 of them for treatment of lumbar spinal stenosis, last one done by Dr. Doug Chappell. The patient also with painful degenerative joint disease of her knees, especially right one, and at [facility] is seeing her and she is getting once in 3 months cortisone injection with help. She had gone through lubrication injections in the past without much help. The patient admits her right knee hernan and that made her fall down and the patient also had a small concussion to her left forehead area, and she complains of pain and swelling in her right knee. The patient lives alone, has 2 steps to enter the house without railing and she usually walks using a roller walker. The patient admits some lower back area stiffness. She denies any tingling or numbness sensation in her lower extremities or any trouble with her bladder control. She admits some numbness in her hands. PHYSICAL EXAMINATION: Today revealed a middle-aged female. She is alert, oriented to time, place, person, and circumstance and follows commands appropriately, moves all 4 extremities voluntarily where she had 4+/5 grade muscle strength. The patient keeping her right knee protected. She had pain on range of motion of right knee, significant limitation of knee flexion and extension, knee extension is short by around 20 degrees, flexion short by about 120 degrees. The patient had crepitus on range of motion of her knee joint with knee joint effusion. Pain free range of motion of both hip joints. She had brisk deep tendon reflexes at both knees and ankles. The patient had some deformity of her right ankle secondary to previous fracture. She had bruised skin around left eye. She had significant weakness of hand intrinsic muscles, both median and ulnar nerve supplied muscles with associated muscle atrophy and also positive Tinel's sign over median nerve at the anterior aspect of both wrists and negative Tinel sign over ulnar nerve at the wrist and elbow, and she also had deformities of both thumbs secondary to degenerative changes at thumb carpometacarpal joints bilaterally. I have not tested her mobility skills at this time as she is having significant right knee pain interfering with her mobility. She is not interested to have her knee injected, even trying to have MRI scan of the right knee to rule out any torn meniscus as right knee hernan that makes her fall down. This has been going on long time and also even tried knee brace. ASSESSMENT: Mobility and self-care limitations in a patient with painful right knee in a patient with known degenerative joint disease of both knees with pain right knee and recent fall and giving up sensation of her right knee, probably from degenerative tear of meniscus. The patient is status post 2 lumbar spine surgeries for treatment of lumbar spinal stenosis without any clinical evidence of ongoing lumbar radiculopathy. 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 RECOMMENDATIONS: If agrees, she can benefit from at least hinged knee brace or medial securities adviser knee brace as she had significant narrowing of medial knee joint line of her right knee and also she needs to have MRI scan of her right knee to confirm any torn meniscus, but at present time, she is not interested. To let her use ice packs and she usually takes Percocet for pain control. Hopefully, home with home health followup when medically stable, to be followed by her orthopedic surgeon at [facility]. Dr. Singleton, appreciate asking me to participate in the care of this interesting patient. I will be glad to follow her with you as needed for her rehabilitation. JORGE MAHAJAN MD DR: ALYCIA/pk JOB#: [id number] / [id number]
[2016-10-18] MEDS ORDERED: traZODone 50 MG TABLET. PO SCH (21:00)
== END 2016-10-18 13:56 | disposition home or self-care (01) | DRG 554 ==
LOC: ER 10:46 → 6 SOUTH 14:20
PROVIDERS: ADMIT Internal Medicine; ATTEND Internal Medicine
DX: M17.11 Unilateral primary osteoarthritis, right knee (principal); Z60.2 Problems related to living alone; S00.83XA Contusion of other part of head, initial encounter; W18.39XA Other fall on same level, initial encounter; E78.00 Pure hypercholesterolemia, unspecified; G47.30 Sleep apnea, unspecified; G56.03 Carpal tunnel syndrome, bilateral upper limbs; G62.9 Polyneuropathy, unspecified; I10 Essential (primary) hypertension; J44.9 Chronic obstructive pulmonary disease, unspecified; K21.9 Gastro-esophageal reflux disease without esophagitis; M47.812 Spondylosis without myelopathy or radiculopathy, cervical region; M48.06 Spinal stenosis, lumbar region; Z96.649 Presence of unspecified artificial hip joint; E66.9 Obesity, unspecified; F32.9 Major depressive disorder, single episode, unspecified; F41.9 Anxiety disorder, unspecified; S09.90XA Unspecified injury of head, initial encounter; Y93.89 Activity, other specified; Y92.038 Other place in apartment as the place of occurrence of the external cause; Y99.8 Other external cause status; Z98.1 Arthrodesis status; Z90.49 Acquired absence of other specified parts of digestive tract; Z68.31 Body mass index [BMI] 31.0-31.9, adult
CPT/HCPCS: 36415; 70450; 70486; 72125; 73562; 80048; 81001; 85027; 93005; J2270; J2405; 99285-25